=== PATIENT | female | born 1950 | race Caucasian/White ===

== ENCOUNTER 2023-12-28 08:05 | Observation (INO) ==
--- NOTE | 2023-11-22 15:57 | PAT Medication Instructions ---
Medication Instructions Date of Service November 22, 2023 Home Medications albuterol sulfate 90 mcg/actuation aerosol inhaler 1 inh inhalation QID PRN celecoxib 200 mg capsule 200 mg PO BID loratadine 10 mg tablet (Claritin) 10 mg PO QAM ASK your surgeon for instructions celecoxib 200 mg capsule 200 mg PO BID DO NOT take the morning of surgery loratadine 10 mg tablet (Claritin) 10 mg PO QAM Take morning of surgery With a small sip of water, OTHERWISE NOTHING TO EAT OR DRINK AFTER MIDNIGHT: albuterol sulfate 90 mcg/actuation aerosol inhaler 1 inh inhalation QID PRN(use if needed; please bring with you to hospital day of surgery if possible) Take evening before surgery albuterol sulfate 90 mcg/actuation aerosol inhaler 1 inh inhalation QID PRN(if needed) Other Notes If you have any questions please call us at [phone] or [phone] or [phone] or [phone]
--- NOTE | 2023-11-29 13:42 | Anesthesiology Consultation ---
Date of Service November 29, 2023 Assessment & Plan (1) Encounter for pre-operative examination: - 12/13 surgeon ordered medical clearance [facility] Dr. Martinez: optimization form and PAT testing to be faxed to PCP. Chart Review Chart Review: Pending: Refer to Additional Notes / Consult section and Patient seen in Pre Admission Testing Teaching & Discussion Pre-Anesthesia Teaching/Discussion Notes: Instructed NPO after midnight before surgery, except medications with 15 cc of water. Medication instructions provided according to the PAT guidelines. History Surgery Operation Date: 12/28/23 10:05 Proposed Procedures p Right Total Knee Arthroplasty - Kanu Kay MD Height/Weight Height: 5 ft 4 in Weight: 77.1 kg Allergies Allergy/AdvReac Type Severity Reaction Status Date / Time latex Allergy skin Verified 11/22/23 13:53 irritation/contact dermatitis povidone-iodine Allergy skin Verified 11/22/23 13:53 [From Betadine] irritation shellfish derived Allergy facial Verified 11/22/23 13:53 swelling Narcotics AdvReac nauseated Uncoded 11/22/23 13:53 Medications Home Medications Medication Instructions Recorded Confirmed Last Taken albuterol sulfate 90 mcg/actuation 1 inh inhalation QID PRN SOB 11/22/23 11/22/23 Unknown aerosol inhaler celecoxib 200 mg capsule 200 mg PO BID 11/22/23 11/22/23 Unknown loratadine 10 mg tablet (Claritin) 10 mg PO QAM 11/22/23 11/22/23 Unknown Past Medical History Medical History (Updated 11/29/23 @ 13:40 by Leila Leggett PA-C) Chronic bronchitis "reason for inhaler" last albuterol inhaler use this morning-average use maci ly GERD (gastroesophageal reflux disease) stable per pt History of diverticulitis (~04/2023) Hx of basal cell carcinoma s/p excision Patient denies h/o stroke, seizures, heart attack, heart failure, DM, HTN, blood clots/DVTs or blood transfusions. Exercise / Class Metabolic Activity II 4-5 Yardwork/Stairs/Walk up hill (shortness of breath with one flight of stairs ongoing for several years-denies change or worsening; denies chest discomfort) Past Surgical History Surgical History History of total left hip arthroplasty History of total left knee replacement Hx of appendectomy Hx of basal cell carcinoma excision Hx of bilateral cataract extraction Hx of colonoscopy Past Anesthesia History No Hx of Anesthesia Complications and No Family Hx of Anesthesia Complications History of PONV History of PONV (with narcotics) and Hx of Motion Sickness Social History Smoking Status: Former smoker Do You Dip or Chew Tobacco: No Smoking End Date: age 31, smoked for 10 years Hx Alcohol Use: Yes alcohol intake frequency: holidays/special occasions only Hx Substance Use: No substance use type: does not use Review of Systems Occasional snoring, denies witnessed apneas. Patient denies chest pain, fever, chills, or palpitations. Physical Exam Vital Signs Vitals BP 136/70 P 62 TEMP 98.1 SP02 95% on RA RESP 18 Physical Patient resting comfortably in chair in no acute distress, alert and oriented, responding appropriately throughout visit Full cervical extension range of motion without pain TMD 3.5 finger breadths Mallampati Score 3 Dentition: several caps/crowns and fixed bridge, denies chipped or loose teeth, or implants Lungs: normal respiratory effort. Good air movement, mild end expiratory wheezing throughout; no rales or rhonchi Cardiac: regular rate and rhythm, no murmurs noted Carotid arteries: negative bruit bilat Lab Results Anesthesia Preop Results Results Anesthesia Widget: WBC 6.28 K/ul (4.8-10.8) 11/29/23 Hgb 14.3 g/dl (12.0-16.0) 11/29/23 Hct 44.2 % (37.0-47.0) 11/29/23 Plt 290 K/uL (130-400) 11/29/23 Na 140 mmol/L (136-145) 11/29/23 K 4.2 mmol/L (3.5-5.1) 11/29/23 Cl 106 mmol/L (98-107) 11/29/23 CO2 27 mmol/L (21-32) 11/29/23 BUN 18 mg/dl (6-23) 11/29/23 Creat 0.64 mg/dl (0.6-1.2) 11/29/23 Glucose Level 91 mg/dl (70-99(Fasting)) 11/29/23 PT 10.5 Seconds (9.0-12.0) 11/29/23 INR 1.0 (0.9-1.1) 11/29/23 Urine Color Yellow 11/29/23 Urine Appearance Clear (Clear) 11/29/23 Urine pH 6.5 (4.5-7.5) 11/29/23 Urine Specific [place] 1.007 (1.000-1.030) 11/29/23 Urine Protein Negative (Negative) 11/29/23 Urine Glucose (UA) Negative (Negative) 11/29/23 Urine Ketones Negative (Negative) 11/29/23 Urine Blood Negative (Negative) 11/29/23 Urine Nitrite Negative (Negative) 11/29/23 Urine Bilirubin Negative (Negative) 11/29/23 Urine Urobilinogen Negative (Negative) 11/29/23 Urine Leukocyte Esterase 2+ (Negative) H 11/29/23 Urine WBC (Auto) 21-50 /hpf (0-5) H 11/29/23 Urine RBC (Auto) 0-2 /hpf (0-2) 11/29/23 Urine Hyaline Casts (Auto) 0-2 /lpf (0-2) 11/29/23 Urine Epithelial Cells (Auto) 0-2 /hpf (0-2) 11/29/23 Urine Bacteria (Auto) None Seen (None Seen) 11/29/23 Blood Type B Positive 11/29/23 Antibody Screen NEGATIVE 11/29/23 Testing Electrocardiogram Date: 11/29/23 NSR with sinus arrhythmia, rate 62 bpm Low voltage QRS Stress Test Date: 08/30/23 Exercise METS 7 MPHR 103% Negative exercise stress ECG and echocardiogram for ischemia EF 67% Mild LVH Other Testing Abdomen pelvis CT 10/25/23 1. No acute abnormalities. 2. Diverticulosis without diverticulitis. 3. Additional findings as above.
--- NOTE | 2023-12-15 11:32 | History & Physical Report ---
Date of Service December 15, 2023 Assessment & Plan (1) Osteoarthritis of right knee: Plan: PRE-OP Diagnosis: Right knee osteoarthritis Planned Procedure: Right total knee arthroplasty Plan: Patient is scheduled to undergo this procedure at the [facility] with Dr. Kay on December 28, 2023. Risks and complications of the procedure such as: Infection, bleeding, pain, scarring, nerve blood vessel damage, weakness, wound problems, stiffness, incomplete relief of symptoms, hardware failure, hardware loosening, wear, fracture, tendon or ligament injury, blood clots, embolism, cardiac, stroke and were explained to the patient at her visit today and informed consent for the procedure was obtained. We will need to obtain preoperative medical clearance from the patient's primary care provider. She states that her appointment is to melodie. Patient is already met with anesthesia at the hospital and while there she obtained a CBC with differential, complete metabolic panel, PT/INR, PTT, blood type and screen, urinalysis, urine culture and sensitivity, EKG. During today's visit we reviewed the total knee packet. I provided the patient with paperwork to obtain obtaining a handicap placard for her vehicle. I provided her with information about lectures offered by [facility] in regards to joint replacement surgery. Patient has a walker at home from her previous left total knee arthroplasty and will bring with her on the morning of surgery. I recommended that she purchase a shower chair and raised toilet seat. We discussed discharge planning from the hospital. Patient states she will most likely do in-home physical therapy for the first 2 weeks before transitioning to outpatient physical therapy. I advised the patient that she will be provided with a prescription for narcotic pain medication for postoperative pain control. We will have her on aspirin twice daily for the first 30 days postoperatively for blood clot prevention. Patient be scheduled for 2-week postoperative follow-up visit with myself on January 08. This chart was completed utilizing [employer] voice recognition software. Grammatical errors, random word insertions, pronoun errors, and in complete sentences are an occasional consequence of the system. Any questions or concerns about the content, text, or information contained within the body of this dictation should be addressed directly to the physician for clarification. History of Present Illness Chief Complaint: Chief Complaint: Right knee pain Primary Care Provider: Abhijeet Ernst History of Present Illness (including history relevant to procedure): This 73-year-old female presents to the clinic today for her preoperative history and physical. Patient complains of a 5-year history of significant right knee pain that is failed conservative management with viscosupplementation injection, co rticosteroid injections and the use of oral nonsteroidal agents. Patient localizes most of her pain over the lateral aspect of her knee. She also states that she has a "knock me" deformity. She states the pain in her knee is affecting her ability to ambulate in normal fashion. She is electing to proceed with surgical intervention at this time. Review Of Systems: A 12 point review of systems is performed and is unremarkable except for those things stated in the HPI and past medical history. Past Medical History: Problems: Changing skin lesion Diverticular disease of left colon Abdominal symptoms Fatigue Low back pain Leg pain Degenerative joint disease (DJD) of lumbar spine Tarsal tunnel syndrome, bilateral Asthma Knee pain Hyperlipemia Peripheral neuropathy History of basal cell carcinoma Procedure History Procedure Procedure Date Comments APPENDECTOMY D&C - Dilatation and curettage Cataract Colonoscopy 11/01/2023 - - Repeat colonoscopy in 10 years for screening purposes. - - Severe diverticulosis in the left colon. There was evidence of diverticular spasm. - The examination was otherwise normal on direct and retroflexion views. - No specimens collected. Chest x-ray Left knee surgery (total knee) Left hip surgery (total hip) 07/06/2022 - Impression:No active disease in the chest Allergies and Sensitivities: iodine(facial swelling) traMADol(Dizziness) Latex(Itchy) Betadine(Rash) Current Home Meds: (Last Updated 12/13 14:52) albuterol (Ventolin HFA 90 mcg/inh inhalation aerosol) 2 puff inhaled q6h PRN: NEEDED FOR COUGH AND FOR WHEEZING atorvastatin (Lipitor 10 mg oral tablet) 10 mg PO qhs calcium citrate (calcium (as calcium citrate) 250 mg oral tablet) 250 mg PO bid celecoxib (celecoxib 200 mg oral capsule) 200 mg PO bid TAKE 1 CAPSULE BY MOUTH TWICE DAILY NEEDED chondroitin-glucosamine (Chondroitin-Glucosamine) ciprofloxacin (ciprofloxacin 500 mg oral tablet) 500 mg PO q12h preop UTI fluconazole (fluconazole 100 mg oral tablet) 100 mg PO Daily 2 tabs on first day, then 1 tab daily fluticasone-vilanterol (Breo Ellipta 200 mcg-25 mcg/inh inhalation powder) lutein magnesium sulfate/potassium sulfate/sodium sulfate (Suprep Bowel Prep Kit oral liquid) Take as directed. ondansetron (Zofran 4 mg oral tablet) PRN: as needed for nausea/vomiting May take 1 tablet 30 minutes before colonoscopy prep drink as needed for nausea/vomiting. Initial Wt: 12/13 77.4 kg 170 lb Allergies Allergy/AdvReac Type Severity Reaction Status Date / Time latex Allergy skin Verified 11/22/23 13:53 irritation/contact dermatitis povidone-iodine Allergy skin Verified 11/22/23 13:53 [From Betadine] irritation shellfish derived Allergy facial Verified 11/22/23 13:53 swelling Narcotics AdvReac nauseated Uncoded 11/22/23 13:53 Home Medications Medication Instructions Recorded Confirmed Type albuterol sulfate 90 mcg/actuation 1 inh inhalation QID PRN SOB 11/22/23 11/22/23 History aerosol inhaler celecoxib 200 mg capsule 200 mg PO BID 11/22/23 11/22/23 History loratadine 10 mg tablet (Claritin) 10 mg PO QAM 11/22/23 11/22/23 History Past Med/Surg History Problem List (Updated 12/15/23 @ 11:30 by Davon Truong PA-C) Osteoarthritis of right knee Encounter for pre-operative examination Medical History GERD (gastroesophageal reflux disease) stable per pt History of diverticulitis (~04/2023) Hx of basal cell carcinoma s/p excision Chronic bronchitis "reason for inhaler" last albuterol inhaler use this morning-average use daily Surgical History Hx of appendectomy Hx of colonoscopy Hx of bilateral cataract extraction Hx of basal cell carcinoma excision History of total left hip arthroplasty History of total left knee replacement Social History Smoking Status: Former smoker Second Hand Exposure: Yes (hx); Do You Dip or Chew Tobacco: No; Hx Alcohol Use: Yes Hx Substance Use: No Preferred Language: Zambian Communication Ability: Effective Car Chaser Required: No Beliefs That Will Affect Care: None Current Living Situation: Significant Other Feels Safe at Home: Yes Assistive Devices: Glasses Review of Systems All systems reviewed & are unremarkable except as noted in Subjective Physical Exam Physical Exam: Physical Exam: (relevant to the procedure, including heart and lung evaluation) General: Alert and oriented x 3 with proper grooming and hygiene Eyes: Pupils are equal and reactive to light with accommodation. Extraocular movements are intact Throat: Posterior oropharynx clear with absence of edema, erythema or exudate. Dentition is appropriate Cardiac: Regular rate and rhythm with no murmurs or gallops appreciated Lungs: Clear to auscultation with no wheezing, rales or rhonchi Abdomen: Mildly obese, nondistended, nontender with NABS Extremities: Right knee; range of motion is from 0 degrees of extension to 115 degrees of flexion. There is audible crepitation with passive range of motion. Patient experiences medial and lateral joint line tenderness when the knee is palpated in flexed position. I was able to slightly manipulate her patella with palpable crepitation. She has visible valgus malalignment. She has no laxity with varus or valgus stressing. AP drawer sign and Tobin test are negative. Patient is neurovascularly intact in the right lower extremity. Neuro: Cranial nerves II through XII are intact no motor or sensory deficit Skin: Normal appearance with no open skin areas or discharge Results & Data Diagnostic Findings Studies (relevant to the procedure): 4views of theright kneeobtained show bone on bone arthritis lateral compartment. Bone spurs all three compartments. Medial patellofemoral arthrosis and joint space narrowing.
[~2023-12-28 08:05] MED LIST: BUPIVACAINE 0.5 % 5 MG/1 ML PF 10ML VIAL ONE; ROPIVACAINE 0.5% 5 MG/ML 30 ML VIAL ONE
--- OUTSIDE RECORDS SUMMARY | 2023-12-28 08:39 | External Medical Summary | Continuity of Care Document ---
Author Name Unknown Organization [facility] [id number] [place] [phone] Care Team Providers Care Shear Operator Automatic Name Role Phone Abhijeet Ernst Primary Care Physician [phone] Encounter [facility] [id number] Date(s): 12/14/23 - 12/14/23 [facility] [address] [address] [phone] Encounter Diagnosis Pre-op evaluation(Discharge Diagnosis) - 12/14/23 Body mass index [BMI] 29.0-29.9, adult(Discharge Diagnosis) - 12/14/23 Osteoarthritis of right knee(Discharge Diagnosis) - 12/14/23 Mild persistent asthma(Discharge Diagnosis) - 12/14/23 Discharge Disposition: Home or Self Care Attending Physician: MD Ernst Dongsheng Allergies, Adverse Reactions, Alerts Substance Criticality Severity Reaction Reaction Severity Status Betadine Unable to assess criticality Mild Rash Active Latex Unable to assess criticality Moderate Itchy Active traMADol Unable to assess criticality Moderate Dizziness Active iodine facial swelling Acti ve Immunizations Given and Recorded Vaccine Date Status Refusal Reason pneumococcal 20-valent conjugate vaccine 1 10/22/21 Recorded hepatitis A-hepatitis B vaccine 2 04/01/21 Recorde d SARS-CoV-2 (COVID-19) mRNA-1273 vaccine 3 03/04/21 Recorded SARS-CoV-2 (COVID-19) mRNA-1273 vaccine 4 06/27/20 Recorded SARS-CoV-2 (COVID-19) mRNA-1273 vaccine 5 05/30/20 Recorded 1Result Comment: 2022-05-11: Historical information-source unspecified 2Result Comment: 2022-05-11: Historical information-source unspecified 3Result Comment: 2022-05-11: Historical information-source unspecified 4Result Comment: 2022-05-11: Historical information-source unspecified 5Result Comment: 2022-05-11: Historical information-source unspecified Medications Breo Ellipta 200 mcg-25 mcg/inh inhalation powder Start: 12/14/23 1:53:00 PM EDT Start Date: 12/14/23 Status: Ordered calcium (as calcium citrate) 250 mg oral tablet Start: 12/07/21 10:41:00 AM EDT, 1 tab, PO, bid Start Date: 12/07/21 Status: Ordered celecoxib 200 mg oral capsule 1 cap, PO, bid, TAKE 1 CAPSULE BY MOUTH TWICE DAILY NEEDED Start Date: 10/07/22 Status: Ordered Chondroitin-Glucosamine Start: 12/07/21 10:37:00 AM EDT Start Date: 12/07/21 Status: Ordered ciprofloxacin 500 mg oral tablet Start: 12/01/23 11:01:00 AM EDT, 1 tab, PO, q12h, Disp# 10 tab, preop UTI, Pharmacy: [facility] [id number] Start Date: 12/01/23 Stop Date: 12/06/23 Status: Ordered fluconazole 100 mg oral tablet Start: 05/25/22 3:22:00 PM EST, 1 tab, PO, Daily, Disp# 8 tab, 2 tabs on first day, then 1 tab daily,Pharmacy: [facility] [id number] Start Date: 05/25/22 Stop Date: 06/01/22 Status: Ordered Lipitor 10 mg oral tablet Start: 04/06/22 2:25:00 PM EST, 1 tab, PO, qhs, Disp# 30 tab, Refills: 5, Pharmacy: [facility] [id number] Start Date: 04/06/22 Stop Date: 10/03/22 Status: Ordered lutein Start: 12/07/21 10:38:00 AM EDT Start Date: 12/07/21 Status: Ordered Suprep Bowel Prep Kit oral liquid Start: 10/19/23 7:11:00 AM EDT, See Instructions, Disp# 354 mL, Refills: 0, Take as directed., Pharmacy: [facility] [id number] Start Date: 10/19/23 Status: Ordered Ventolin HFA 90 mcg/inh inhalation aerosol Start: 10/10/23 3:00:00 PM EDT, 2 puff, inhaled, q6h, Disp# 18 g, Refills: 3, PRN: NEEDED FOR COUGH AND FOR WHEEZING, Brand Medically Necessary, Pharmacy: [id number] Start Date: 10/10/23 Status: Ordered Zofran 4 mg oral tablet Start: 10/19/23 7:11:00 AM EDT, See Instructions, Disp# 3 tab, Refills: 0, May take 1 tablet 30 minutes before colonoscopy prep drink as needed for nausea/vomiting., PRN: as needed for nausea/vomiting, Pharmacy: [id number] Start Date: 10/19/23 Status: Ordered Mental Status 12/14/23 Barriers to Learning one year None evide nt Mandatory Health Literacy Documentation Yes Health Literacy Communication Barriers N ever Primary Language Luxembourgish Problem List Condition Confirmation Course Effective Dates Status Health St atus Informant Asthma Confirmed Active Tarsal tunnel syndrome, bilateral Confirmed Active Changing skin lesion Confirmed Active Diverticular disease of left colon Confirmed Active Fatigue Confirmed Active Abdominal symptoms Confirmed Active Hyperlipemia Confirmed Active Knee pain Confirmed Active Low back pain Confirmed Active Degenerative joint disease (DJD) of lumbar spine Confirmed Active Leg pain Confirmed Active Peripheral neuropathy Confirmed Active Diagnosis Diagnosis Type Effective Dates Health Status Clinical Service Informant Pre-op evaluation Discharge Diagnosis 12/14/23 Non-Specified Mild persistent asthma Discharge Diagnosis 12/14/23 Non-Specified Body mass index [BMI] 29.0-29.9, adult Discharge Diagnosis 12/14/23 Non-Specified Osteoarthritis of right knee Discharge Diagnosis 12/14/23 Non-Specified Procedures Procedure Date Related Diagnosis Body Site Status Colonoscopy 1, 2 11/01/23 Complete d Chest x-ray 3 07/06/22 Completed APPENDECTOMY Completed Cataract Completed D&C - Dilatation and curettage Completed 1- Severe diverticulosis in the left colon. There was evidence of diverticular spasm. - The examination was otherwise normal on direct and retroflexion views. - No specimens collected. 2- Repeat colonoscopy in 10 years for screening purposes. 3Impression: No active disease in the chest Vital Signs Most recent to oldest [Reference Range]: 1 Height 163 cm (12/14/23 3:02 PM) Patient Weight 77.4 kg (12/14/23 3:02 PM) Body Mass Index 29.13 kg/m2 (12/14/23 3:02 PM) Heart Rate 65 bpm (12/14/23 3:02 PM) Respiratory Rate 18 br/min (12/14/23 3:02 PM) Blood Pressure 132/98mmHg (12/14/23 3:02 PM) Cuff Pulse Pressure 34 mmHg (12/14/23 3:02 PM) Social History Social History Type Response Smoking Status Never smoked cigaret selma Sex Sex Representation Female (finding) Patient Care team information Care Team Personnel Name: BARON King, Adeline Jones Position: Physician Asst Exmpt - Family Med Member Role: Lifetime Relationship Address: [address] [place] [address] Name: MD Klever, Abhijeet Position: Physician - Family Med Member Role: Primary Care Provider Address: [address] [place] [address] Care Team Related Persons Name: LUZ MARIA MATHEW
--- OUTSIDE RECORDS SUMMARY | 2023-12-28 08:39 | External Medical Summary | Continuity of Care Document ---
Author Name Unknown Organization [facility] [address] [place] [id number] Address [address] [place] [address] [phone] Care Team Providers Care Senior Business Development Manager Name Role Phone Abhijeet Ernst Primary Care Physician [phone] [id number] Date(s): 12/14/23 - 12/14/23 [facility] [address] [facility] [address] [facility] [address] [place] [id number] Encounter Diagnosis Preop examination(Discharge Diagnosis) - 12/14/23 Right knee DJD(Discharge Diagnosis) - 12/14/23 Encounter for other preprocedural examination(Final) - Unilateral primary osteoarthritis, right knee(Final) - Discharge Disposition: Home or Self Care Attending Physician: BARON Truong Dennis Referring Physician: MD Rahul, Kanu Gibbs Allergies, Adverse Reactions, Alerts Substance Criticality Severity [...] q12h, Disp# 10 tab, preop UTI, Pharmacy: [place] [id number] Start Date: 12/01/23 Stop Date: 12/06/23 Status: Ordered fluconazole 100 mg oral tablet Start: 05/25/22 3:22:00 PM EST, 1 tab, PO, Daily, Disp# 8 tab, 2 tabs on first day, then 1 tab daily,Pharmacy: [place] [id number] Start Date: 05/25/22 Stop Date: 06/01/22 Status: Ordered Lipitor 10 mg oral tablet Start: 04/06/22 2:25:00 PM EST, 1 tab, PO, qhs, Disp# 30 tab, Refills: 5, Pharmacy: [place] [id number] Start Date: 04/06/22 Stop Date: 10/03/22 Status: Ordered lutein Start: 12/07/21 10:38:00 AM EDT Start Date: 12/07/21 Status: Ordered Suprep Bowel Prep Kit oral liquid Start: 10/19/23 7:11:00 AM EDT, See Instructions, Disp# 354 mL, Refills: 0, Take as directed., Pharmacy: [place] [id number] Start Date: 10/19/23 Status: Ordered Ventolin HFA 90 mcg/inh inhalation aerosol Start: 10/10/23 3:00:00 PM EDT, 2 puff, inhaled, q6h, Disp# 18 g, Refills: 3, PRN: NEEDED FOR COUGH AND FOR WHEEZING, Brand Medically Necessary, Pharmacy: [id number] Start Date: 10/10/23 Status: Ordered Zofran 4 mg oral tablet Start: 10/19/23 7:11:00 AM EDT, See Instructions, Disp# 3 tab, Refills: 0, May take 1 tablet 30 minutes before colonoscopy prep drink as needed for nausea/vomiting., PRN: as needed for nausea/vomiting, Pharmacy: [id number] Start Date: 10/19/23 Status: Ordered Mental Status 12/14/23 Barriers to Learning one year None evide nt Mandatory Health Literacy Documentation Yes Health Literacy Communication Barriers N ever Primary Language Danish Problem List Condition Confirmation Course Effective Dates [...] Effective Dates Health Status Clinical Service Informant Preop examination Discharge Diagnosis 12/14/23 Right knee DJD Discharge Diagnosis 12/14/23 Procedures Procedure Date Related Diagnosis Body Site [...] 3Impression: No active disease in the chest Results Laboratory List Name Date Urine Analysis, Microscopic Only (URINE MICROSCOPIC) 12/14/23 Most recent to oldest [Reference Range]: 1 Squamous Epithelial Cells (u) FEW *Unknown* (12/14/23 3:17 PM) Bact (u) [NONE-NONE] FEW *Abnormal* (12/14/23 3:17 PM) RBC (u) [0-4 /HPF] 0-4 /HPF (12/14/23 3:17 PM) WBC (u) [0-4 /HPF] 0-4 /HPF (12/14/23 3:17 PM) Vital Signs Most recent to oldest [Reference Range]: 1 Height 163 cm (12/14/23 1:55 PM) Patient Weight 77.4 kg (12/14/23 1:55 PM) Body Mass Index 29.13 kg/m2 (12/14/23 1:55 PM) Heart Rate 79 bpm (12/14/23 1:55 PM) Blood Pressure 140/90mmHg (12/14/23 1:55 PM) Cuff Pulse Pressure 50 mmHg (12/14/23 1:55 PM) Social History Social History Type Response Smoking Status Never smoked cigaret selma Sex Sex Representation Female (finding) Patient Care team information Care Team Personnel Name: BARON King, Adeline Jones Position: Physician Asst Exmpt - Family Med Member Role: Lifetime Relationship Address: [address] [place] [address] [place] Name: MD Klever, Abhijeet Position: Physician - Family Med Member Role: Primary Care Provider Address: [address] [place] [address] [place] Care Team Related Persons Name: LUZ [place] MATHEW
[2023-12-28] MEDS ORDERED: MIDAZOLAM HCL 1 MG/ML 2ML VIAL ONE (08:43)
[2023-12-28] MEDS ORDERED: PROPOFOL IV EMULSION 10 MG/ML 20 ML VIAL IV ONE (08:43)
[2023-12-28] MEDS: Scopolamine 1 MG TDSY TD SCH (08:52)
[2023-12-28] MEDS: ACETAMINOPHEN 500 MG TAB PO SCH ×2 (08:53→15:31)
[2023-12-28] MEDS: CeleBREX 200 MG CAP PO SCH ×3 (08:54→22:10)
[2023-12-28] MEDS: FAMOTIDINE 20 MG TAB PO SCH (08:54)
[2023-12-28] MEDS: dexAMETHasone**PF** 10 MG/ML VIAL IV SCH (08:55)
[2023-12-28] MEDS: LR 500ML BOLUS, THEN 15ML/HR IV SCH (09:15)
[2023-12-28] MEDS: LR 60ML/HR IV SCH (09:15)
--- NOTE | 2023-12-28 09:46 | History & Physical Bridge Note ---
Date of Service December 28, 2023 History & Physical Bridge Note I have examined the patient, reviewed the History & Physical and in the interval since the performance of the History & Physical I have noted the following changes of clinical significance: no changes noted
[2023-12-28] MEDS ORDERED: ATROPINE SULFATE 0.1 MG/ML 10ML SYR IV PRN (09:47)
[2023-12-28] MEDS ORDERED: PROMETHAZINE HCL 6.25 MG in SODIUM CHLORIDE 0.9% 50 ML IV PRN (09:47)
[2023-12-28] MEDS ORDERED: HYDROmorphone INJ 2 MG/ML SYR/VIAL IV PRN (09:47)
[2023-12-28] MEDS ORDERED: fentaNYL citrate PF 100 MCG/2 ML VIAL IV PRN (09:47)
[2023-12-28] MEDS ORDERED: ePHEDrine sulfate 50 MG/ML AMP IV PRN (09:47)
[2023-12-28] MEDS ORDERED: ONDANSETRON INJ 2 MG/ML 2 ML VIAL IV PRN ×2 (09:47→12:22)
[2023-12-28] MEDS: TRANEXAMIC ACID 1,000 MG **IV Pre-op IV SCH (10:23)
[2023-12-28] MEDS: ceFAZolin 2000MG 2,000 MG/15 ML SYR IV SCH ×2 (10:40→18:27)
[2023-12-28] MEDS: ORTHO JOINT ANESTHETIC ONE (10:58)
[2023-12-28] MEDS ORDERED: ONDANSETRON INJ 2 MG/ML 2 ML VIAL ONE (11:09)
[2023-12-28] MEDS ORDERED: PHENYLEPHRINE 100MCG/ML 10ML SYR IV ONE (11:15)
[2023-12-28] MEDS: TRANEXAMIC ACID 1,000 MG **IV Intra-op IV SCH (11:50)
[2023-12-28] MEDS: ROPIVACAINE 0.5% HCL/PF 246 MG, Ketorolac (*for OR use only*) 30 MG, EPINEPHrine 30MG/3... INFIL SCH (11:57)
--- NOTE | 2023-12-28 12:20 | Operative Report ---
Post Operative Report Pre & Post Diagnosis Operation Date: 12/28/23 10:25 Pre-Op Diagnosis: Right Knee Osteoarthritis Post-Op Diagnosis: Right Knee Osteoarthritis I identified the patient and participated in the time-out.: Yes Procedure Operation Date: 12/28/23 10:25 Actual Procedures p Right Total Knee Arthroplasty(Right) - Kanu Kay MD Surgeon Kanu Kay MD Director Private Izt Kumar DO and ISRAEL Truong PA-C. Estimated Blood Loss 100 Findings Consistent with Post-Op Diagnosis Specimens Right knee bone and soft tissue contents Anesthesia Type Spinal MAC Complications none Disposition Disposition: Recovery Room Indications 73-year-old female with right knee osteoarthritis refractory to conservative management. X-rays demonstrate joint space narrowing, tricompartmental osteophyte formation, and subchondral sclerosis. She has mild valgus alignment clinically. I had a long discussion with her about her diagnosis and treatment options. I reviewed the risks and benefits of surgery, alternatives to surgery, and expected outcomes. After reviewing all these she elected to proceed with surgery. All questions were answered. Informed consent was signed. Description of Procedure Patient was identified in the preoperative holding area where the surgical site, right knee, was marked. Spinal anesthetic was placed by anesthesia. Patient was brought back to the operating room, placed on the operating room table, and IV sedation was administered. A bump was placed underneath the ipsilateral hip. All bony prominences were padded. Perioperative antibiotics and tranexamic acid were administered. Exam under anesthesia was performed. this demonstrated the patient to have approximately 8 degrees of valgus malalignment. The range of motion arc was approximately 3 degrees to 105 degrees. Stable to varus and valgus stress test at 30 degrees. The surgical site was prepped and draped in the normal sterile fashion. Prior to incision a multidisciplinary timeout was called. All in the room were in agreement. We began by exsanguinating the limb with an Esmarch bandage. Tourniquet was inflated to 250 mmHg. A 14 cm long incision was made over the anterior aspect of the knee. I dissected through the subcutaneous tissues to the level of the fascia. Full-thickness flaps were raised above the fascia. A median parapatellar arthrotomy was made. Half the fat pad was excised. A medial release was performed with Bovie electrocautery on the proximal tibia. Synovitis in the knee and suprapatellar pouch was removed. The patella was then everted and held with 2 towel clips. Patella showed severe osteoarthritis with bone loss in the lateral facet and eburnation. The thickness of the patella was measured at 20 mm. Patellar resection was p erformed. Caliper showed the patella thickness now to be 13 mm. A size 35 trial was placed and had a great fit. The 3 drill holes were placed then the trial button was placed. The patellar thickness was now 23 mm which I was very happy with. The patellar trial was then removed, and the knee was flexed up. Retractors were placed to protect the MCL and LCL. Osteophytes were removed from the femoral condyles and intercondylar notch. The ACL and PCL were excised. Intramedullary drill guide was drilled into the femur. Distal femoral cutting guide was placed set at 5 degrees of valgus to resect 10 mm off the distal femur. Distal femoral resection was made without difficulty. The tibia was then exposed. The lateral meniscus was sharply excised. The tibial cutting jig was positioned in line with the tibial shaft in the coronal plane and with 3 degrees of posterior slope in the sagittal plane to resect 7 mm off the more involved compartment. The jig was then pinned in position and the tibial cut was made. We then brought the knee into full extension. Lamina spreaders were placed. The medial meniscus was excised. The extension block was then placed for 5 mm thickness poly. This gave us full extension and excellent stability to varus and valgus stress. Next the extension block was removed, the knee was flexed up, collateral ligaments were protected, and the epicondylar axis and Whitesides line were marked out on the distal femoral cut. Femoral sizing guide was placed. External rotation was set at 3 degrees so that the posterior cut would be parallel with the epicondylar axis and perpendicular with Whitesides line. The patient sized to a size 5 femur. 2 pins were then placed through the jig into the distal femur. The jig was removed and the appropriately sized 4-in-1 cutting jig was placed over the pins, then fixated to the bone using threaded, headed pins. We confirmed that we would not notch the femur with our anterior cut. Our 4 cuts were then made. The cutting jig was removed. The flexion block was then placed with the knee held at 90 degrees. There was excellent stability to varus and valgus at 90 degrees with no gapping medially or later ally. Next the box cutting jig was placed on the distal femur. The box cut was made and the femoral trial was impacted into position. Lug holes were drilled in the distal femur. We then reexposed the tibia. The tibia was sized to a 4 for a fixed-bearing component. The tibial tray with a 5 mm thickness polyethylene liner was placed on the cut tibial surface and the knee was brought through a full range of motion. There was excellent stability to varus valgus stress throughout a full range of motion, which was approximately 0-125 degrees. Bovie electrocautery was used to toyin the tibia at the site where the tibial tray rested in full extension. We then flexed up the knee, removed the polyethylene liner, and pinned the tibial tray into position to match the cautery toyin. The intramedullary drill followed by the keel punch were used to prepare the tibia. Next the trial components were removed. I then injected the posterior capsule and periosteum with the periarticular injection cocktail. The bone cuts were then irrigated and dried while the cement was mixed on the back table. The femoral component was cemented on first. Excess cement was removed. A lap sponge was placed over the femoral component for protection, then the tibia was subluxated anteriorly. The all polyethylene tibial component was then cemented in place. Again excess cement was removed. The knee was brought into full extension and held there until the cement cured. The patella was cemented and clamped. The injection cocktail was then injected in the subcutaneous tissues. Once the cement was fully cured, the knee was irrigated out with dilute chlorhexidine, the tourniquet was let down and meticulous hemostasis was ensured. The knee was brought through a full range of motion. I was were very happy with the patella tracking and the stability. We then began to close. Interrupted 0 Vicryl suture was used to repair the patellar retinaculum in [id number] fashion. The quadriceps and patellar tendons were run with #1 Vicryl. The deep dermal layer was closed with interrupted 2-0 Vicryl. Dermabond and Zipline was used for the skin, followed by a Silverlon dressing. A compressive Pipo wrap was placed and the knee was placed into a knee immobilizer. Patient's sedation was lifted and was transferred to recovery room in stable condition. Summary of implants: Depuy Attune Posterior Stabilized Cemented Femur, size 5 narrow for a right femur Attune All-polyethylene tibial component, posterior stabilized 5 mm thickness, size 4 Attune patella medialized dome, size 35 2 batches of simplex high viscosity bone cement Postoperative course: Patient will be admitted to the floor for pain control and monitoring. Weightbearing as tolerated with a walker with no knee range of mo tion for 48 hours. Aspirin for DVT prophylaxis. I attest to the content of the Intraoperative Record and any orders documented therein. Any exceptions are noted below.
[2023-12-28] MEDS ORDERED: ALUMINUM/MAGNESIUM SUSP 30 ML UDC PO PRN (12:22)
[2023-12-28] MEDS ORDERED: HYDROmorphone INJ 0.5 MG/0.5 ML SYR IV PRN (12:22)
[2023-12-28] MEDS ORDERED: METOCLOPRAMIDE HCL INJ 5 MG/ML 2 ML VIAL IV PRN (12:22)
[2023-12-28] MEDS ORDERED: diphenhydrAMINE 50 MG/ML VIAL IV PRN (12:22)
[2023-12-28] MEDS ORDERED: NALOXONE HCL 0.4 MG/1 ML VIAL/CARP IV PRN (12:22)
[2023-12-28] MEDS ORDERED: bisacodyL 10 MG SUPP PR PRN (12:22)
[2023-12-28] MEDS ORDERED: MAGNESIUM HYDROXIDE SUSP 30 ML UDC PO PRN (12:22)
--- NOTE | 2023-12-28 12:22 | Operative Report ---
Post Operative Report Pre & Post Diagnosis Operation Date: 12/28/23 10:25 Pre-Op Diagnosis: Right Knee Osteoarthritis Post-Op Diagnosis: Right Knee Osteoarthritis I identified the patient and participated in the time-out.: Yes Procedure Operation Date: 12/28/23 10:25 Actual Procedures p Right Total Knee Arthroplasty(Right) - Kanu Kay MD Surgeon Kanu Kay MD Pyrotechnic Mixer Itz Kumar DO; ISRAEL Truong PA-C Estimated Blood Loss 100 Findings Consistent with Post-Op Diagnosis Specimens Right knee bone and soft tissue Description of Procedure I was present during the entire case assisting with positioning, prepping, draping, wound retraction, wound closure, dressing and immobilizer placement. Fellow also present. I served as an extra set of hands during the case. Please see Dr. Kay procedure note for specifics of the case. I attest to the content of the Intraoperative Record and any orders documented therein. Any exceptions are noted below.
--- NOTE | 2023-12-28 12:25 | Operative Report ---
Post Operative Report Pre & Post Diagnosis Pre-Op Diagnosis: Right Knee Osteoarthritis Post-Op Diagnosis: Right Knee Osteoarthritis I identified the patient and participated in the time-out.: Yes Procedure Right total knee arthroplasty Surgeon Kanu Kay MD Doctor Of Veterinary Medicine Itz Kumar DO/ISRAEL Truong PA-C Estimated Blood Loss 100 Findings Consistent with Post-Op Diagnosis Specimens Right knee bone and soft tissues Description of Procedure Patient was brought to the operative suite. Right lower extremity was prepped and draped in the usual sterile fashion. Surgical timeout was performed. Patient underwent a right total knee arthroplasty, please see Dr. Kay's operative report for full details. I was present and assisted with limb positioning, soft tissue retraction, bone preparation, hardware placement, wound closure, dressing and brace placeement. Patient was taken to recovery in stable condition. I attest to the content of the Intraoperative Record and any orders documented therein. Any exceptions are noted below.
[2023-12-28] MEDS ORDERED: ALBUTEROL HFA 8 GM INHALER INH PRN (12:26)
--- NOTE | 2023-12-28 13:52 | Anesthesiology Progress Note ---
Date of Service December 28, 2023 Anesthesia Post Procedure Vital Signs Vital Signs: Temp Pulse Pulse Resp BP Pulse Ox O2 Del Method 12/28/23 13:30 36.8 C 71 17 116/58 L 98 Nasal Cannula 12/28/23 13:20 73 18 109/71 98 Nasal Cannula 12/28/23 13:10 66 17 113/69 99 Nasal Cannula 12/28/23 13:00 65 17 101/70 99 Nasal Cannula 12/28/23 12:50 74 17 101/72 99 Nasal Cannula 12/28/23 12:40 75 17 96/69 L 98 Nasal Cannula 12/28/23 12:30 82 20 102/70 97 Nasal Cannula 12/28/23 12:21 36.8 C 87 22 102/66 96 Nasal Cannula 12/28/23 08:35 36.4 C L 95 H 20 125/71 95 Room Air O2 Flow Rate 12/28/23 13:30 4 12/28/23 13:20 4 12/28/23 13:10 4 12/28/23 13:00 4 12/28/23 12:50 4 12/28/23 12:40 4 12/28/23 12:30 4 12/28/23 12:21 4 12/28/23 08:35 Transfer of Care Handoff Completed per policy Notes Mental Status: alert / awake / arousable and participated in evaluation Nausea / Vomiting: adequately controlled Pain: adequately controlled Airway Patency, RR, SpO2: stable & adequate BP & HR: stable & adequate Hydration State: stable & adequate Neuraxial Anesthesia: was administered and sensory block is resolving Anesthetic Complications: no major complications apparent and Pt Satisfied with anesthetic care
[2023-12-28] MEDS: SODIUM CHLORIDE 0.9% 1,000 ML IV SCH (13:55)
[2023-12-28] MEDS: KETOROLAC TROMETHAMINE 15 MG/ML VIAL IV SCH (15:46)
--- NOTE | 2023-12-28 16:19 | XRay Report ---
RIGHT KNEE 2 VIEWS History: Right total knee arthroplasty. Degenerative arthritis. Postop. FINDINGS: The patient is status post a right total knee arthroplasty. The hardware is intact. No frac ture or dislocation. IMPRESSION: Right total knee arthroplasty. No evidence for hardware complication. ACT 112: Negative or not required by law. Electronically signed by: Keith Sosa M.D. 12/28/2023 4:18 PM
[2023-12-28] MEDS: Scopolamine CHECK PATCH PLACEMENT SCH (17:01)
[2023-12-28] MEDS: oxyCODONE HCL IR 5 MG TAB (IMMEDIATE RELEASE) PO PRN (17:03)
[2023-12-28] MEDS: DOCUSATE SODIUM 100 MG CAP PO SCH (20:58)
[2023-12-28] MEDS: SENNA 8.6 MG TAB PO SCH (20:58)
[2023-12-29 06:47] LABS: Hematocrit (blood only) 35.9 % (37.0-47.0); Hemoglobin 12.1 g/dl (12.0-16.0); Mean Corpuscular Hemoglobin 29.8 pg (25.0-34.0); Mean Corpuscular Hgb Conc 33.7 g/dL (32.0-36.0); Mean Corpuscular Volume 88.4 fL (80.0-100.0); Mean Platelet Volume 8.8 fL (9.4-12.4); Platelet Count 310 K/uL (130-400); RDW Coefficient of Variation 12.3 % (11.5-14.5); Red Blood Count 4.06 M/uL (4.20-5.40); White Blood Count 15.52 K/ul (4.8-10.8)
[2023-12-29 07:10] LABS: BUN Creatinine Ratio 25.4 (10-20); Calcium 8.4 mg/dl (8.6-10.3); Creatinine Clr Calc Pharmacy 80.5 ml/min; Est GFR (African American) 103.9 ml/min; Est GFR (Non-African American) 89.6 ml/min; Potassium 4.2 mmol/L (3.5-5.1)
[2023-12-29 07:43] VITALS: BP 112/72; RESP 17; TEMP 97.5; O2SAT 94
[2023-12-29] MEDS: dexAMETHasone 4 MG TAB PO SCH (07:54)
[2023-12-29] MEDS: ASPIRIN 81 MG ECTAB PO SCH (07:54)
[2023-12-29] MEDS: LORATADINE 10 MG TAB PO SCH (07:54)
[2023-12-29] MEDS: MULTIVITAMIN TAB PO SCH (07:54)
--- NOTE | 2023-12-29 10:12 | Orthopedic Progress Note ---
Date of Service December 29, 2023 Assessment & Plan (1) S/P total knee arthroplasty: Plan: Weightbearing as tolerated with walker assistance and immobilizer for the first 48 hours postop PT/OT DVT prophylaxis with FADY stockings and aspirin Pain control with p.o. medication Ice with a easy wrap Keep Silverlon dressing in place until follow-up Plan is to discharge home today with in-home physical therapy for the first 2 weeks Follow-up at [facility] orthopedics as previously scheduled With questions contact our clinic at [phone] Admission and Anticipated Discharge Date Admission Date: December 28, 2023 Subjective This 73-year-old female is day 1 status post right total knee arthroplasty. Patient states she is doing very well. She states her pain is well-controlled with the p.o. pain medication she is receiving. Patient states she hopes to be discharged home later this morning. She is scheduled to do in-home physical therapy for the first 2 weeks. Currently she denies chest pain, shortness of breath, fever, chills, sweats, nausea, vomiting, diarrhea, difficulty voiding or numbness or tingling in the right lower extremity. Review of Systems Review of Systems: All systems reviewed & are unremarkable except as noted in Subjective Physical Exam Physical Exam: Right knee: Outer dressing is removed. Silverlon is clean dry and intact and left in place. Patient is able to actively perform a straight leg raise test. She is able to actively dorsi and plantarflex her foot without issue. Her quad strength is 4 out of 5. Active knee range of motion is from 0 to 45 degrees. Patient is neurovascularly intact. Results & Data Vital Signs (Past 12 Hours) Vital Signs Temp Pulse Pulse Resp BP Pulse Ox O2 Del Method 12/29/23 07:41 36.4 C L 68 17 112/72 94 Room Air 12/29/23 07:02 36.3 C L 58 L 18 125/74 95 Room Air 12/29/23 02:00 36.5 C 65 16 105/64 93 Room Air Diagnostic Findings Laboratory Results WBC 15.52 K/ul (4.8-10.8) H 12/29/23 06:06 RBC 4.06 M/uL (4.20-5.40) L 12/29/23 06:06 Hgb 12.1 g/dl (12.0-16.0) 12/29/23 06:06 Hct 35.9 % (37.0-47.0) L 12/29/23 06:06 MCV 88.4 fL (80.0-100.0) 12/29/23 06:06 MCH 29.8 pg (25.0-34.0) 12/29/23 06:06 MCHC 33.7 g/dL (32.0-36.0) 12/29/23 06:06 RDW Std Deviation 40.0 fL (36.4-46.3) 12/29/23 06:06 RDW Coeff of Tierra 12.3 % (11.5-14.5) 12/29/23 06:06 Plt Count 310 K/uL (130-400) 12/29/23 06:06 MPV 8.8 fL (9.4-12.4) L 12/29/23 06:06 Sodium 141 mmol/L (136-145) 12/29/23 06:06 Potassium 4.2 mmol/L (3.5-5.1) 12/29/23 06:06 Chloride 111 mmol/L (98-107) H 12/29/23 06:06 Carbon Dioxide 25 mmol/L (21-32) 12/29/23 06:06 Anion Gap 5 (3-11) 12/29/23 06:06 BUN 16 mg/dl (6-23) 12/29/23 06:06 Creatinine 0.63 mg/dl (0.6-1.2) 12/29/23 06:06 Est Cr Clr Drug Dosing 80.5 ml/min 12/29/23 06:06 Est GFR ( Amer) 103.9 ml/min 12/29/23 06:06 Est GFR (Non-Af Amer) 89.6 ml/min 12/29/23 06:06 BUN/Creatinine Ratio 25.4 (10-20) H 12/29/23 06:06 Glucose 104 mg/dl (70-99(Fasting)) H 12/29/23 06:06 Calcium 8.4 mg/dl (8.6-10.3) L 12/29/23 06:06 Impressions Knee X-Ray 12/28/23 12:22 RIGHT KNEE 2 VIEWS History: Right total knee arthroplasty. Degenerative arthritis. Postop. FINDINGS: The patient is status post a right total knee arthroplasty. The hardware is intact. No fracture or dislocation. IMPRESSION: Right total knee arthroplasty. No evidence for hardware complication. ACT 112: Negative or not required by law. Electronically signed by: Keith Sosa M.D. 12/28/2023 4:18 PM
--- NOTE | 2023-12-29 10:18 | Discharge Summary ---
Date of Service December 29, 2023 Admission HPI Per Admitting Provider History of Present Illness (including history relevant to procedure): This 73-year-old female presents to the clinic today for her preoperative history and physical. Patient complains of a 5-year history of significant right knee pain that is failed conservative management with viscosupplementation injection, corticosteroid injections and the use of oral nonsteroidal agents. Patient localizes most of her pain over the lateral aspect of her knee. She also states that she has a "knock me" deformity. She states the pain in her knee is affecting her ability to ambulate in normal fashion. She is electing to proceed with surgical intervention at this time. Review Of Systems: A 12 point review of systems is performed and is unremarkable except for those things stated in the HPI and past medical history. Past Medical History: Problems: Changing skin lesion Diverticular disease of left colon Abdominal symptoms Fatigue Low back pain Leg pain Degenerative joint disease (DJD) of lumbar spine Tarsal tunnel syndrome, bilateral Asthma Knee pain Hyperlipemia Peripheral neuropathy History of basal cell carcinoma Procedure History Procedure Procedure Date Comments APPENDECTOMY D&C - Dilatation and curettage Cataract Colonoscopy 11/01/2023 - - Repeat colonoscopy in 10 years for screening purposes. - - Severe diverticulosis in the left colon. There was evidence of diverticular spasm. - The examination was otherwise normal on direct and retroflexion views. - No specimens collected. Chest x-ray Left knee surgery (total knee) Left hip surgery (total hip) 07/06/2022 - Impression:No active disease in the chest Allergies and Sensitivities: iodine(facial swelling) traMADol(Dizziness) Latex(Itchy) Betadine(Rash) Current Home Meds: (Last Updated 12/13 14:52) albuterol (Ventolin HFA 90 mcg/inh inhalation aerosol) 2 puff inhaled q6h PRN: NEEDED FOR COUGH AND FOR WHEEZING atorvastatin (Lipitor 10 mg oral tablet) 10 mg PO qhs calcium citrate (calcium (as calcium citrate) 250 mg oral tablet) 250 mg PO bid celecoxib (celecoxib 200 mg oral capsule) 200 mg PO bid TAKE 1 CAPSULE BY MOUTH TWICE DAILY NEEDED chondroitin-glucosamine (Chondroitin-Glucosamine) ciprofloxacin (ciprofloxacin 500 mg oral tablet) 500 mg PO q12h preop UTI fluconazole (fluconazole 100 mg oral tablet) 100 mg PO Daily 2 tabs on first day, then 1 tab daily fluticasone-vilanterol (Breo Ellipta 200 mcg-25 mcg/inh inhalation powder) lutein magnesium sulfate/potassium sulfate/sodium sulfate (Suprep Bowel Prep Kit oral liquid) Take as directed. ondansetron (Zofran 4 mg oral tablet) PRN: as needed for nausea/vomiting May take 1 tablet 30 minutes before colonoscopy prep drink as needed for nausea/vomiting. Initial Wt: 12/13 77.4 kg 170 lb Admission Exam Per Admitting Provider Physical Exam: (relevant to the procedure, including heart and lung evaluation) General: Alert and oriented x 3 with proper grooming and hygiene Eyes: Pupils are equal and reactive to light with accommodation. Extraocular movements are intact Throat: Posterior oropharynx clear with absence of edema, erythema or exudate. Dentition is appropriate Cardiac: Regular rate and rhythm with no murmurs or gallops appreciated Lungs: Clear to auscultation with no wheezing, rales or rhonchi Abdomen: Mildly obese, nondistended, nontender with NABS Extremities: Right knee; range of motion is from 0 degrees of extension to 115 degrees of flexion. There is audible crepitation with passive range of motion. Patient experiences medial and lateral joint line tenderness when the knee is palpated in flexed position. I was able to slightly manipulate her patella with palpable crepitation. She has visible valgus malalignment. She has no laxity with varus or valgus stressing. AP drawer sign and Tobin test are negative. Patient is neurovascularly intact in the right lower extremity. Neuro: Cranial nerves II through XII are intact no motor or sensory deficit Skin: Normal appearance with no open skin areas or discharge Principal Diagnosis Right knee osteoarthritis Discharge Exam Right knee: Outer dressing is removed. Silverlon is clean dry and intact and left in place. Patient is able to actively perform a straight leg raise test. She is able to actively dorsi and plantarflex her foot without issue. Her quad strength is 4 out of 5. Active knee range of motion is from 0 to 45 degrees. Patient is neurovascularly intact. Discharge Data Allergies Allergy/AdvReac Type Severity Reaction Status Date / Time latex Allergy skin Verified 12/28/23 08:32 irritation/contact dermatitis povidone-iodine Allergy skin Verified 12/28/23 08:32 [From Betadine] irritation shellfish derived Allergy facial Verified 12/28/23 08:32 swelling Narcotics AdvReac nauseated Uncoded 09/05/24 08:32 Procedures Performed Operation Date: 12/28/23 10:25 Actual Procedures p Right Total Knee Arthroplasty(Right) - Kanu Kay MD Ordered Studies 12/28/23 05:00 US - OR guided needle placemen Routine Hospital Course (1) S/P total knee arthroplasty: Patient had a prior to her 2-week follow-up, she will contact the clinic. n uneventful overnight stay following total knee arthroplasty. She is very pleased with the results of her surgery. She plans on beginning in-home physical therapy sometime this weekend. If she has questions or concerns that should arise prior to her follow-up, she will contact the clinic. Weightbearing as tolerated with walker assistance and immobilizer for the first 48 hours postop PT/OT DVT prophylaxis with FADY stockings and aspirin Pain control with p.o. medication Ice with a easy wrap Keep Silverlon dressing in place until follow-up Plan is to discharge home today with in-home physical therapy for the first 2 weeks Follow-up at [facility] orthoped[facility] as previously scheduled With questions contact our clinic at [phone] Total Time Total Time Spent Total Time Spent (In Minutes): 20 mins Discharge Plan Discharge Items Patient Disposition: Home - Home Health Services Reason For Visit: Right Knee Osteoarthritis Discharge Diagnosis: Right knee osteoarthritis Activity: As commented below Lifting: None Bathing: Keep incision dry Bathing Comment: May shower tomorrow Sexual Activity: Wait until after follow-up appointment Exercise/Sports: Wait until after follow-up appointment Driving/Machine Use: No driving until cleared by produce specialist Weightbearing Comment: as tolerate with walker and immobilizer for first 48 hrs post op Non-emergency contact: Surgeon Call non-emergency contact if: you have any medication questions, your pain is not controlled, your temperature is above 101.5, your wound has increased drainage and your wound pain has increased Follow-up/Referrals: Abhijeet Ernst [Primary Care Provider] - Diet: Regular Addtl Attending Provider Instructions: Post-operative Instructions Dear Patient and Family/Friends, Before you are discharged from the hospital, it is important to know what to expect when you get home after surgery. To that end, we have created this sheet of discharge instructions which covers many commonly asked questions. Make sure you go through this sheet in its entirety with your nurse before you are discharged. Please note that we will go over the specifics of your surgery and recovery when you return for your first post-operative visit. Sincerely, Dr. Kay Medication 1. Oxycodone 5 mg: Take 1-2 tabs every 4-6 hours as needed for pain control. A prescription for this medication will be sent to your pharmacy. 2. Resume your normal daily regimen of Celebrex. If you need a refill contact our clinic. 3. Aspirin 81 mg: Take 1 tablet twice daily for the next 30 days for postoperative blood clot prevention. Please purchase this medication. 4. Extra strength Tylenol 500 mg: Take 2 tabs every 6-8 hours as needed for additional pain relief. Please purchase the medication. Pain Expect to be in a fair amount of pain after surgery. Remember, our goal is not to eliminate your pain, but to make it tolerable. It is a good idea to stay ahead of your pain by taking the medications you were prescribed once you get home. Typically, the pain starts improving 3-7 days after surgery. You should start weaning off the narcotic pain medication (oxycodone, hydrocodone, hydromorphone, morphine) as soon as your pain improves. Please call our office if your pain is not adequately controlled. Ice Ice your operative site at least 5 times a day for 15-30 minutes at a time. Make sure you have a thin cloth between the ice or cooling unit and your skin to prevent nuñez bite. This is especially important if you received a nerve block. Continue icing your operative site for the first 5-7 days after surgery, then as needed. Diet/Nausea/Vomiting Start by drinking clear liquids and eating crackers. If you can tolerate this, then you may resume your normal diet. If you feel nauseated or vomit, take Zofran/ondansetron (if prescribed). Please call our office if you have intractable nausea or vomiting, or, if after hours, you may go to the Emergency Room for help. Constipation Constipation is a common side effect of narcotic pain medication. If you have not had a bowel movement within 2 days after surgery, we recommend purchasing an over the counter laxative such as Milk of Magnesia, Dulcolax, or Miralax from a local pharmacy, and taking it as instructed. Call our clinic if any questions. Slings and Braces If you were placed in a sling or brace, it must be worn at all times, including sleep. You may remove your sling or brace for physical therapy, home exercises, and showering. The length of time you will be in your brace and range of motion restrictions depends on what surgery you had; these details will be reviewed at your first post-operative appointment. Nerve block The anesthesia team sometimes places a nerve block to help with post-operative pain control. This results in significant numbness and inability to move the extremity. The nerve block usually wears off in 8-12 hours, but sometimes can last up to 24 hours. Please call our office if you are still unable to move your extremity after 24 hours, unless you received a pain pump to take home. Nerve blocks typically wear off quickly, so start taking pain medication as soon as you start feeling soreness near your surgical site. Weight bearing and Range of Motion. Do not bear any weight through your operative extremity immediately after surgery. If you had upper extremity surgery, do not lift anything with that arm. If you are in a knee brace, keep it locked in place until your follow-up. We will discuss your weight bearing, range of motion, and lifting restrictions in detail at your first post-operative appointment. Continuous Passive Motion (CPM) Machine If you were prescribed a CPM machine, it will start after your first post- operative appointment, at which time we will give you instructions on the range of motion settings and duration of treatment Physical therapy You will be given a prescription for physical therapy or occupational therapy at your first post-operative appointment. Typically, patients start therapy within 1 week of surgery Wound care and showering We will inspect your wound at your first post-operative visit, and may do a dressing change at that time. Most patients will be in a water-proof dressing that is removed 14 days after surgery. It is normal to see some dried blood on the dressing. Do not remove your dressing, paper strips or sutures yourself unless you are given permission. Showering is allowed the day after surgery. Do not scrub or remove any dressings. The wound should not be submerged underwater (i.e. in a bathtub or pool) until 4 weeks after surgery FADY stockings If you were given white stockings, these are to be worn at all times except to shower (on both legs) for the first 2 weeks after surgery. Driving You may not drive while taking narcotic pain medication or while in a cast, splint, sling or brace. You, the patient, need to make the final determination about when you are safe to drive, however, the earliest you may consider driving after surgery is below: Hand/Wrist/Elbow Surgery: 3 days Shoulder Surgery: 2 weeks Hip,/Knee/Ankle Surgery: 4 weeks Fracture repair: 6 weeks Return to Work Your return to work depends on what surgery was done and what type of work you do. Please bring any paperwork your employer needs completed to your first post-operative visit. Also, bring a description of your job duties, as this helps us to understand what risks you may face at work. Travel Avoid long distance travel (greater than 1 hour) in airplanes and cars for the first 6 weeks after surgery. If you must travel, you need to have a Doppler ultrasound done before you travel to rule out a blood clot in your legs. Follow-up You should have a follow-up appointment already scheduled 1-2 days after surgery. If not, please contact our office to make this appointment before you leave the hospital. When to call the office It is normal to have swelling and bruising in the limb that was operated on. This will improve with time. It is also normal to have fevers for the first 2 days after surgery. Reasons you should call your doctor include: Uncontrolled pain; Nausea, vomiting, or constipation that does not improve with medication; Fevers over 101.5, chills, sweats; Drainage or bleeding from the wound; Foul odor; Spreading areas of redness; Any other concerns Pending Studies at Discharge: No Stand-Alone Forms: My [facility] Medications and DC Order Prescriptions: New acetaminophen [Tylenol Extra Strength] 500 mg Tablet 1,000 mg PO Q8 30 Days Qty: 180 0RF aspirin 81 mg Tablet,Delayed Release (Dr/Ec) 81 mg PO BID 30 Days Qty: 60 0RF oxycodone 5 mg Tablet 5 - 10 mg PO Q4H MDD Ongoing Tx PRN (Reason: Post op pain control) Qty: 28 0RF Continued celecoxib 200 mg capsule 200 mg PO BID albuterol sulfate 90 mcg/actuation Hfa Aerosol Inhaler 1 inh INHALATION QID PRN (Reason: SOB) loratadine [Claritin] 10 mg Tablet 10 mg PO QAM Breo Ellipta Admission Data Admit Date/Time: 12/28/23 12:22 Attending Provider: Kanu Kay Admit Provider: Kanu Kay Primary Care Provider: Abhijeet Ernst
[2023-12-29 11:28] VITALS: PULSE 65
== END 2023-12-29 12:05 | disposition home health service (06) ==
LOC: 3E 08:05 → ASU 08:05